=== PATIENT | female | born 1975 | race Caucasian/White ===

== ENCOUNTER 2024-09-20 20:52 | Emergency (ER) | payer OTHER ==
--- NOTE | 2024-09-20 21:23 | ER ---
Nurse's Notes [facility] Name: Jada Quiroz Age: 49 yrs Sex: Female : 1975 Arrival Date: 09/20/2024 Time: 20:52 Bed IW10 Private MD: Diagnosis: Electrocution injury Presentation: 09/20 21:15 Chief complaint: Patient states: pt reports trying to unplug something from the wall bm8 and got zapped. feels like a little chest pain and arm pain. Coronavirus screen: At this time, the client does not indicate any symptoms associated with coronavirus-19. Ebola Screen: Patient negative for fever greater than or equal to 101.5 degrees Fahrenheit, and additional compatible Ebola Virus Disease symptoms Patient denies exposure to infectious person. Patient denies travel to an Ebola-affected area in the 21 days before illness onset. No symptoms or risks identified at this time. Initial Sepsis Screen: Does the patient meet any 2 criteria? No. Patient's initial sepsis screen is negative. Does the patient have a suspected source of infection? No. Patient's initial sepsis screen is negative. Risk Assessment: Do you want to hurt yourself or someone else? Patient reports no desire to harm self or others. Onset of symptoms was September 20, 2024 at 20:00. 21:15 Method Of Arrival: Ambulatory 8 21:15 Acuity: OPHELIA 3 bm8 Triage Assessment: 21:16 General: Appears in no apparent distress. comfortable, Behavior is cooperative, bm8 appropriate for age, anxious. Pain: Complains of pain in chest and right arm Pain currently is 3 out of 10 on a pain scale. EENT: No deficits noted. No signs and/or symptoms were reported regarding the EENT system. Neuro: No deficits noted. Level of Consciousness is awake, alert, obeys commands, Oriented to person, place, time, situation, Appropriate for age. Cardiovascular: Reports chest pain, Heart tones S1 S2 present Capillary refill < 3 seconds in bilateral fingers Patient's skin is warm and dry. Rhythm is sinus rhythm. Respiratory: Airway is patent Trachea midline Respiratory effort is even, unlabored, Respiratory pattern is regular, symmetrical, Breath sounds are clear bilaterally. GI: Reports nausea. : No deficits noted. No signs and/or symptoms were reported regarding the genitourinary system. Derm: No deficits noted. No signs and/or symptoms reported regarding the dermatologic system. Musculoskeletal: No deficits noted. No signs and/or symptoms reported regarding the musculoskeletal system. 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 - Infectious Disease History:: Denies. - Social history:: Smoking status: Patient reports the use of cigarette tobacco products, Patient/guardian denies using alcohol, street drugs. - Family history:: not pertinent. Screenin:21 [facility] ED Fall Risk Assessment (Adult) History of falling in the last 3 months, bm8 including since admission No falls in past 3 months (0 pts) Confusion or Disorientation No (0 pts) Intoxicated or Sedated No (0 pts) Impaired Gait No (0 pts) Mobility Assist Device Used No (0 pt) Altered Elimination No (0 pt) Score/Fall Risk Level 0 - 2 = Low Risk Oriented to surroundings, Maintained a safe environment, Educated pt \T\ family on fall prevention, incl call for assistance when getting out of bed, Assessed \T\ reinforced patient's understanding of fall precautions, Hourly rounding (assess needs \T\ fall precautionary measures) done, Used ambulatory aids as needed (educated on \T\ assisted with), Used gait belt as appropriate. Abuse screen: Denies threats or abuse. Nutritional screening: No deficits noted. Tuberculosis screening: No symptoms or risk factors identified. Assessment: 21:21 Reassessment: see triage assessmeent. bm8 Vital Signs: 21:15 BP 146 / 97; Pulse 79; Resp 18; Temp 97.8; Pulse Ox 100% ; Weight 68.04 kg; Height 5 bm8 ft. 0 in. ; Pain 3/10; 21:15 Body Mass Index 29.29 (68.04 kg, 152.4 cm) bm8 21:15 Pain Scale: Adult bm8 Thalia Coma Score: 21:21 Eye Response: spontaneous(4). Motor Response: obeys commands(6). Verbal Response: bm8 oriented(5). Total: 15. ED Course: 20:54 Patient arrived in ED. [email or web address] 20:54 Naveen Stoner MD is Attending Physician. rt 21:16 Triage completed. bm8 21:16 Arm band placed on left wrist. bm8 21:21 Patient has correct armband on for positive identification. Bed in low position. bm8 Provided Education on: post er care. 21:21 No provider procedures requiring assistance completed. Patient did not have IV access bm8 during this emergency room visit. 21:30 Chidi Patel, RN is Primary Nurse. bm8 Administered Medications: No medications were administered Medication: 21:21 VIS not applicable for this client. bm8 Outcome: 21:21 Discharged to home ambulatory, bm8 21:21 Condition: stable 21:21 Discharge instructions given to patient, Instructed on discharge instructions, follow up and referral plans. medication usage, Demonstrated understanding of instructions, follow-up care, medications, 21:23 Discharge ordered by MD. rt 21:30 Patient left the ED. bm8 Signatures: Kaycee Lavinia [email or web address] Naveen Stoner MD MD rt Chidi Patel, RN RN bm8 Corrections: (The following items were deleted from the chart) 21:19 21:16 PMHx: portal hypertension; bm8 bm8
--- NOTE | 2024-09-20 21:23 | EDPHYS ---
Physician Documentation [facility] Name: Jada Quiroz Age: 49 yrs Sex: Female : 1975 Arrival Date: 09/20/2024 Time: 20:52 Bed IW10 Private MD: ED Physician Naveen Stoner HPI: 09/20 21:26 This 49 yrs old Female presents to ER via Ambulatory with complaints of Electrocution. rt 21:26 Patient presents to the ED with electrical shock injury occurring about 1 hour prior to rt arrival. Patient was removing a broken phone wool classer from extension cord when the prongs hit her causing medication to the right hand. Education lasted for few seconds. She initially had feelings of heart racing, tingling to the arm. States this is improved, reports mild nausea currently. Denies other acute complaints, symptoms are moderate in severity, no other aggravating or alleviating factors.. 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 - Infectious Disease History:: Denies. - Social history:: Smoking status: Patient reports the use of cigarette tobacco products, Patient/guardian denies using alcohol, street drugs. - Family history:: not pertinent. ROS: 21:26 Constitutional: Negative for fever, chills, and weight loss, Respiratory: Negative for rt shortness of breath, cough, wheezing, and pleuritic chest pain, MS/Extremity: Negative for injury and deformity, 21:26 Cardiovascular: Positive for palpitations, Negative for chest pain, 21:26 Abdomen/GI: Positive for nausea, Negative for vomiting, Exam: 21:26 Constitutional: This is a well developed, well nourished patient who is awake, alert, rt and in no acute distress. Head/Face: Normocephalic, atraumatic. Chest/axilla: Normal chest wall appearance and motion. Nontender with no deformity. No lesions are appreciated. Cardiovascular: Regular rate and rhythm with a normal S1 and S2. No gallops, murmurs, or rubs. Normal PMI, no JVD. No pulse deficits. Respiratory: Lungs have equal breath sounds bilaterally, clear to auscultation and percussion. No rales, rhonchi or wheezes noted. No increased work of breathing, no retractions or nasal flaring. Abdomen/GI: Soft, non-tender, with normal bowel sounds. No distension or tympany. No guarding or rebound. No evidence of tenderness throughout. Skin: Warm, dry with normal turgor. Normal color with no rashes, no lesions, and no evidence of cellulitis. MS/ Extremity: Pulses equal, no cyanosis. Neurovascular intact. Full, normal range of motion. Neuro: Awake and alert, GCS 15, oriented to person, place, time, and situation. Cranial nerves II-XII grossly intact. Motor strength 5/5 in all extremities. Sensory grossly intact. Cerebellar exam normal. Normal gait. 21:26 ECG was reviewed by the Attending Physician. Vital Signs: 21:15 BP 146 / 97; Pulse 79; Resp 18; Temp 97.8; Pulse Ox 100% ; Weight 68.04 kg; Height 5 bm8 ft. 0 in. ; Pain 3/10; 21:15 Body Mass Index 29.29 (68.04 kg, 152.4 cm) bm8 21:15 Pain Scale: Adult bm8 [place] Coma Score: 21:21 Eye Response: spontaneous(4). Motor Response: obeys commands(6). Verbal Response: bm8 oriented(5). Total: 15. MDM: 21:22 Medical Screening Exam initiated rt 21:26 Differential diagnosis: Electrical injury, dysrhythmia. Data reviewed: vital signs, rt nurses notes, EKG. Test considered but Not performed: Other Details Stable vital signs, normal EKG, low suspicion for cardiac injury, rhabdomyolysis. Labs are not indicated.. Counseling: I had a detailed discussion with the patient and/or guardian regarding the historical points, exam findings, and any diagnostic results supporting the discharge/admit diagnosis, the need for outpatient follow up, to return to the emergency department if symptoms worsen or persist or if there are any questions or concerns that arise at home. EC:26 Rate is 72 beats/min. Rhythm is regular, Normal Sinus Rhythm with No ectopy. QRS [place] rt is Normal. MI interval is normal. QRS interval is normal. QT interval is normal. No Q waves. T waves are Normal. No ST changes noted. Interpreted by me. Administered Medications: No medications were administered Disposition Summary: 09/20/24 21:23 Discharge Ordered Notes: Location: Home rt Problem: new rt Symptoms: have improved rt Condition: Stable rt Diagnosis - Electrocution injury rt Followup: rt - With: Private Physician - When: 2 - 3 days - Reason: Discharge Instructions: - Discharge Summary Sheet rt - Electric Shock Injury rt Forms: - Medication Reconciliation Form rt - Antibiotic Education rt - Prescription Opioid Use rt - Patient Portal Instructions rt - Leadership Thank You Letter rt Signatures: Naveen Stoner MD MD rt Chidi Patel, RN RN bm8 Corrections: (The following items were deleted from the chart) 21:19 21:16 PMHx: portal hypertension; bm8 bm8
[2024-09-20 22:17] VITALS: BP 146/97; TEMP 97.8; O2SAT 100
--- NOTE | 2024-09-21 08:50 | EKG ---
Test Date: 2024-09-20 Test Time: 21:13:31 Distribution Analyst: JAVI MEASUREMENT RESULTS: Intervals: Rate: 72 RI: 158 QRSD: 90 QT: 386 QTc: 422 [place]: P: 75 RI: 158 QRS: 88 T: 63 INTERPRETIVE STATEMENTS: Normal sinus rhythm Normal ECG No previous ECG available for comparison Electronically Signed On 09-21-24 08:49:44 SPORTS UMPIRE by Randal Nieves
== END 2024-09-20 21:30 | disposition home or self-care (01) ==
LOC: ER 20:52
DX: T75.4XXA Electrocution, initial encounter (principal)
CPT/HCPCS: 93005; 99282

== ENCOUNTER 2025-02-10 18:13 | Emergency (ER) | payer OTHER ==
[2025-02-10] MEDS ORDERED: DIPHENHYDRAMINE 50 MG/ML VIAL ONE (19:35)
[2025-02-10] MEDS ORDERED: METOCLOPRAMIDE 10 MG/2mL INJ ONE (19:35)
[2025-02-10] MEDS ORDERED: NA CHLORIDE 0.9% 1,000 ML ONE (19:35)
[2025-02-10] MEDS ORDERED: FAMOTIDINE 20 MG/2 ML VIAL IV ONE (19:35)
[2025-02-10 19:38] LABS: Absolute Basophils 0.1 K/uL (0-0.5); Absolute Eosinophils 0.1 K/uL (0-0.5); Absolute Lymphocytes (CBC) 2.5 K/uL (0.7-4.9); Absolute Monocytes 0.6 K/uL (0.1-1.3); Absolute Neutrophil 11.2 K/uL (1.8-8.0); Eosinophils % 0.9 % (0-4.4); Hematocrit 47.7 % (36.0-45.0); Lymphocytes % 17.4 % (15.3-44.8); MCH 31.9 pg (27.0-35.0); MCHC 33.6 g/dL (32.0-36.0); MCV 95.1 fL (80-100); MPV 8.6 fL (7.6-11.3); Monocytes % 4.2 % (3.3-12.3); Neutrophils % 76.5 % (41.7-73.7); Nucleated Red Blood Cells % 0.1 % (0-0); Platelets 296 thou/uL (152-406); RBC Red Blood Cell Count 5.02 M/uL (3.86-4.86); Red Cell Distribution Width 12.9 % (12.1-15.2)
[2025-02-10 20:01] LABS: Albumin 3.9 g/dL (3.4-5.0); Albumin/Globulin Ratio 0.8 (1.1-1.8); Anion Gap 9.6 mEq/L (5.0-15.0); Bilirubin Total 0.5 mg/dL (0.2-1.0); Globulin 5.1 g/dL (2.3-3.5); Potassium 3.6 mEq/L (3.5-5.1)
[2025-02-10 20:48] LABS: Influenza A Ag Negative; Influenza B Ag Negative; SARS-CoV-2 Antigen Rapid Res Negative (Negative)
--- NOTE | 2025-02-10 21:13 | RAD REPORT ---
EXAMINATION: Abdomen Pelvis W Contrast CLINICAL INDICATION: Female, 49 years old.EPIGASTRIC PAIN TECHNIQUE: CT abdomen and pelvis was performed, after the administration of IV contrast, [facility]. Axial, sagittal and coronal reconstructions were obtained. One or more of the following dose reduction techniques were used: Automated exposure control, adjustment of the mA and/o r kV according to patient size, and/or iterative reconstruction. Unless otherwise specified, incidental findings do not require dedicated imaging follow-up. [id number]. COMPARISON: No prior exam. FINDINGS: LOWER CHEST: No acute process identified.No significant pericardial effusion. UPPER GI: No significant abnormality. LIVER: Cirrhotic liver morphology. No focal masses. GALLBLADDER/BILE DUCTS: No biliary ductal dilatation.? PANCREAS: No mass, ductal dilation, or matt-pancreatic fluid. SPLEEN: Unremarkable. ADRENALS: No adrenal masses. KIDNEYS AND URETERS: No hydronephrosis.No suspicious renal mass.Nonobstructing renal calculi. ABDOMINAL AORTA AND OTHER VESSELS: Moderate atherosclerotic changes without aortic aneurysm. PERITONEUM: No abnormal free fluid. No free air. LYMPH NODES: Upper abdominal lymphadenopathy which is nonspecific but probably reactive and related t o underlying liver disease. ABDOMINAL WALL: Unremarkable SMALL BOWEL/COLON: Small bowel has normal course and caliber. No colonic wall thickening or pericolon ic inflammatory changes.Appendix absent. Mild formed stool burden. URINARY BLADDER: Underdistended but grossly unremarkable. REPRODUCTIVE ORGANS: No pathologic process. MUSCULOSKELETAL: Grade 1 anterolisthesis of L5 on S1 with bilateral pars defects. ADDITIONAL FINDINGS: None. IMPRESSION: No acute findings within the abdomen or pelvis. Incidental findings as noted above.
--- NOTE | 2025-02-10 22:30 | ER ---
Nurse's Notes [facility] Name: Jada Quiroz Age: 49 yrs Sex: Female : 1975 Arrival Date: 02/10/2025 Time: 18:13 Bed 13 Private MD: Diagnosis: Nausea with vomiting, unspecified;Diarrhea, unspecified Presentation: 02/10 18:25 Chief complaint: Patient states: N/V/D, fever, [place] for 2 days. Coronavirus screen: ll1 Client denies travel out of the [place] in the last 14 days. diarrhea, fatigue, fever, nausea, vomiting. Client presents with at least one sign or symptom that may indicate coronavirus-19. Standard/surgical mask placed on the client. Ebola Screen: Patient denies travel to an Ebola-affected area in the 21 days before illness onset. Initial Sepsis Screen: Does the patient meet any 2 criteria? No. Patient's initial sepsis screen is negative. Does the patient have a suspected source of infection? No. Patient's initial sepsis screen is negative. Risk Assessment: Do you want to hurt yourself or someone else? Patient reports no desire to harm self or others. Onset of symptoms was February 09, 2025. 18:25 Method Of Arrival: Ambulatory 1 18:25 Acuity: OPHELIA 3 ll1 Triage Assessment: 18:26 General: Appears uncomfortable, ill, Behavior is calm, cooperative, appropriate for ll1 age. Pain: Complains of pain in head Quality of pain is described as aching. Neuro: Reports headache weakness. GI: Reports cramping, diarrhea, nausea, vomiting. 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 - Infectious Disease History:: Denies. - Social history:: Smoking status: Patient denies any tobacco usage or history of. Screenin:35 [facility] ED Fall Risk Assessment (Adult) History of falling in the last 3 months, rg5 including since admission No falls in past 3 months (0 pts) Confusion or Disorientation No (0 pts) Intoxicated or Sedated No (0 pts) Impaired Gait No (0 pts) Mobility Assist Device Used No (0 pt) Altered Elimination No (0 pt) Score/Fall Risk Level 0 - 2 = Low Risk Oriented to surroundings, Maintained a safe environment, Hourly rounding (assess needs \T\ fall precautionary measures) done. Abuse screen: Denies threats or abuse. Nutritional screening: No deficits noted. Tuberculosis screening: No symptoms or risk factors identified. Assessment: 19:35 General: Appears uncomfortable, Behavior is calm, cooperative, appropriate for age, rg5 Reports feeling ill for 12-24 hours. 19:35 Pain: Complains of pain in head. Neuro: Level of Consciousness is awake, alert, obeys rg5 commands, Oriented to person, place, time, situation. Cardiovascular: Denies chest pain, Patient's skin is warm and dry. Respiratory: Airway is patent Trachea midline Respiratory effort is even, unlabored, Respiratory pattern is regular, symmetrical. GI: Abdomen is round non-distended, Bowel sounds present in left lower quadrant Abd is soft and non tender Reports cramping, diarrhea, nausea, vomiting. : No signs and/or symptoms were reported regarding the genitourinary system. EENT: No deficits noted. Derm: Skin is intact, Skin is dry, Skin is normal. Musculoskeletal: Circulation, motion, and sensation intact. Range of motion: intact in all extremities. 20:30 Reassessment: No changes from previously documented assessment. Patient and/or family rg5 updated on plan of care and expected duration. Pain level reassessed. Patient is alert, oriented x 3, equal unlabored respirations, skin warm/dry/pink. 21:40 Reassessment: Patient and/or family updated on plan of care and expected duration. Pain rg5 level reassessed. Patient is alert, oriented x 3, equal unlabored respirations, skin warm/dry/pink. Patient states feeling better. 22:45 Reassessment: Patient and/or family updated on plan of care and expected duration. Pain rg5 level reassessed. Patient is alert, oriented x 3, equal unlabored respirations, skin warm/dry/pink. Patient states symptoms have improved. Vital Signs: 18:25 BP 155 / 91; Pulse 92; Resp 18; Temp 98.6; Pulse Ox 97% ; Pain 10/10; ll1 19:35 BP 164 / 94; Pulse 70; Resp 19; Pulse Ox 97% on R/A; rg5 20:14 BP 157 / 91; Pulse 73; Resp 18; Pulse Ox 99% ; rg5 21:40 BP 111 / 69; Pulse 85; Resp 18; Pulse Ox 97% ; Pain 0/10; rg5 22:40 BP 121 / 67; Pulse 80; Resp 17; Pulse Ox 99% on R/A; Pain 0/10; rg5 18:25 Pain Scale: Adult ll1 21:40 Pain Scale: Adult rg5 22:40 Pain Scale: Adult rg5 ED Course: 18:16 Patient arrived in ED. cj3 18:24 [place] PA is PHCP. cp 18:24 Reema Downing is Attending Physician. cp 18:26 Triage completed. ll1 18:27 Arm band placed on. ll1 19:19 John Jeong, RN is Primary Nurse. rg5 19:35 Patient has correct armband on for positive identification. Call light in reach. Side rg5 rails up X 1. Door closed. Noise minimized. 19:35 No provider procedures requiring assistance completed. Inserted saline lock: 20 gauge rg5 in right antecubital area, using aseptic technique. Blood collected. Flushed with 10 mL NS. 21:03 CT Abd/Pelvis - IV Contrast Only In Process Unspecified. EDMS 23:03 Provided Education on: post er care done. rg5 23:03 IV discontinued, bleeding controlled, No redness/swelling at site. Pressure dressing rg5 applied. Administered Medications: 19:48 Drug: diphenhydrAMINE IVP 25 mg IVP once Route: IVP; Site: right antecubital; rg5 20:30 Follow up: Response: No adverse reaction rg5 19:48 Drug: metoCLOPramide IVP 10 mg IVP once; over 1 to 2 minutes Route: IVP; Site: right rg5 antecubital; 20:30 Follow up: Response: No adverse reaction rg5 19:49 Drug: Famotidine IVP 20 mg IVP once; dilute with 10 mL 0.9% NaCl; give over 2 minutes rg5 Route: IVP; Site: right antecubital; 20:30 Follow up: Response: No adverse reaction rg5 19:49 Drug: NS 0.9% IV 1000 ml IV at 1 bolus Per protocol; to be given as a bolus over 60 rg5 minutes Route: IV; Rate: 1 bolus; Site: right antecubital; 20:30 Follow up: Response: No adverse reaction; IV Status: Completed infusion; IV Intake: rg5 1000ml Medication: 19:35 VIS not applicable for this client. rg5 Intake: 20:30 IV: 1000ml; Total: 1000ml. rg5 Outcome: 22:30 Discharge ordered by MD. chester 23:03 Discharged to home ambulatory, rg5 23:03 Condition: good 23:03 Discharge instructions given to patient, Instructed on discharge instructions, Demonstrated understanding of instructions, follow-up care, Prescriptions given X 1, 23:04 Patient left the ED. rg5 Signatures: Dispatcher [employer] EDMS [place]y PA PA cp Lewis, Lynsay RN RN ll1 John Jeong RN RN rg5 Cathi Baird cj3
--- NOTE | 2025-02-10 22:30 | EDPHYS ---
Physician Documentation [facility] Name: Jada Quiroz Age: 49 yrs Sex: Female : 1975 Arrival Date: 02/10/2025 Time: 18:13 Bed 13 Private MD: ED Physician Reema Downing HPI: 02/10 18:35 This 49 yrs old Female presents to ER via Ambulatory with complaints of cp Nausea/Vomiting/Diarrhea, Fever. 18:35 The patient presents to the emergency department with nausea, with "dry heaves", cp vomiting, that is continuous, diarrhea, that is intermittent. Onset: The symptoms/episode began/occurred 2 day(s) ago. Possible causes: unknown. Associated signs and symptoms: Pertinent positives: anorexia, fever, headache, weakness, Pertinent negatives: constipation, GI bleeding. Severity of symptoms: in the emergency department the symptoms are unchanged despite home interventions. 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 - Infectious Disease History:: Denies. - Social history:: Smoking status: Patient denies any tobacco usage or history of. ROS: 18:40 Constitutional: Positive for fever, poor PO intake, cp 18:40 Eyes: Negative for injury, pain, redness, and discharge, cp 18:40 ENT: Negative for drainage from ear(s), ear pain, sore throat, difficulty swallowing, difficulty handling secretions, 18:40 Cardiovascular: Negative for chest pain, 18:40 Respiratory: Negative for cough, shortness of breath, wheezing, 18:40 Abdomen/GI: Positive for abdominal pain, nausea, vomiting, and diarrhea, anorexia, Negative for constipation, black/tarry stool, rectal bleeding, 18:40 Neuro: Negative for altered mental status, 18:40 All other systems are negative, cp Exam: 18:45 Constitutional: The patient appears in no acute distress, alert, awake, cp non-diaphoretic, non-toxic, well developed, well nourished, uncomfortable, 18:45 Head/Face: Normocephalic, atraumatic. cp 18:45 Eyes: Periorbital structures: appear normal, Conjunctiva: normal, no exudate, no injection, Sclera: no appreciated abnormality, Lids and lashes: appear normal, bilaterally, 18:45 ENT: External ear(s): are unremarkable, Nose: is normal, Mouth: Lips: moist, Oral mucosa: moist, Posterior pharynx: Airway: no evidence of obstruction, patent, 18:45 Chest/axilla: Inspection: normal, 18:45 Cardiovascular: Rate: normal, Rhythm: regular, Edema: is not appreciated, JVD: is not appreciated, 18:45 Respiratory: the patient does not display signs of respiratory distress, Respirations: normal, no use of accessory muscles, no retractions, labored breathing, is not present, Breath sounds: are clear throughout, no decreased breath sounds, no stridor, no wheezing, 18:45 Abdomen/GI: Inspection: abdomen appears normal, Bowel sounds: active, all quadrants, Palpation: soft, in all quadrants, moderate abdominal tenderness, in the epigastric area, right upper quadrant and left upper quadrant, rebound tenderness, is not appreciated, involuntary guarding, is not appreciated, 18:45 Back: pain, is absent, ROM is normal, 18:45 Neuro: Orientation: to person, place \\T\\ time. Mentation: is normal, Vital Signs: 18:25 BP 155 / 91; Pulse 92; Resp 18; Temp 98.6; Pulse Ox 97% ; Pain 10/10; ll1 19:35 BP 164 / 94; Pulse 70; Resp 19; Pulse Ox 97% on R/A; rg5 20:14 BP 157 / 91; Pulse 73; Resp 18; Pulse Ox 99% ; rg5 21:40 BP 111 / 69; Pulse 85; Resp 18; Pulse Ox 97% ; Pain 0/10; rg5 22:40 BP 121 / 67; Pulse 80; Resp 17; Pulse Ox 99% on R/A; Pain 0/10; rg5 18:25 Pain Scale: Adult ll1 21:40 Pain Scale: Adult rg5 22:40 Pain Scale: Adult rg5 MDM: 18:25 Medical Screening Exam initiated cp 22:30 Data reviewed: vital signs, nurses notes, lab test result(s), radiologic studies, CT cp scan, plain films, and as a result, I will discharge patient. 22:30 Differential diagnosis: gastritis, cholecystitis, pancreatitis, diverticulitis, viral cp gastroenteritis, gastroenteritis. I considered the following discharge prescriptions or medication management in the emergency department Medications were administered in the Emergency Department. See MAR. Care significantly affected by the following chronic conditions: Hypertension. Counseling: I had a detailed discussion with the patient and/or guardian regarding the historical points, exam findings, and any diagnostic results supporting the discharge/admit diagnosis, lab results, radiology results, to return to the emergency department if symptoms worsen or persist or if there are any questions or concerns that arise at home. Response to treatment: the patient's symptoms have markedly improved after treatment, and as a result, I will discharge patient. Special discussion: Based on the patient's Hx, exam, and Dx evaluation, there is no indication for emergent surgery or inpatient Tx. It is understood by the patient/guardian that if the Sx's persist or worsen they need to return immediately for re-evaluation. 04 18:32 Order name: COVID-19 Ag + Flu A+B Ag; Complete Time: 21:18 cp 02/10 18:32 Order name: Urinalysis W/Microscopic cp 02/10 18:32 Order name: CBC with Diff; Complete Time: 20:20 cp 02/10 21:59 Interpretation: Normal except: WBC 14.60; RBC 5.02; HGB 16.0; HCT 47.7; BRAULIO% 76.5; NEUT cp A 11.2. 02/10 18:32 Order name: CMP; Complete Time: 20:20 cp 02/10 21:59 Interpretation: Normal except: GFR 71; AST 45; ALT 89; ALK 268; TP 9.0; GLOB 5.1; A/G cp 0.8. 04 18:32 Order name: Lipase; Complete Time: 20:20 cp 02/10 22:00 Interpretation: Abnormal: LIP 158. cp 02/10 18:32 Order name: Test, Urine cp 02/10 18:32 Order name: Magnesium; Complete Time: 20:20 cp 02/10 20:20 Order name: CT Abd/Pelvis - IV Contrast Only; Complete Time: 21:18 cp 02/10 21:19 Interpretation: Report reviewed. cp 02/10 18:32 Order name: IV Saline Lock; Complete Time: 19:49 cp 02/10 18:32 Order name: Labs collected and sent; Complete Time: 19:49 cp Administered Medications: 19:48 Drug: diphenhydrAMINE IVP 25 mg IVP once Route: IVP; Site: right antecubital; rg5 20:30 Follow up: Response: No adverse reaction rg5 19:48 Drug: metoCLOPramide IVP 10 mg IVP once; over 1 to 2 minutes Route: IVP; Site: right rg5 antecubital; 20:30 Follow up: Response: No adverse reaction rg5 19:49 Drug: Famotidine IVP 20 mg IVP once; dilute with 10 mL 0.9% NaCl; give over 2 minutes rg5 Route: IVP; Site: right antecubital; 20:30 Follow up: Response: No adverse reaction rg5 19:49 Drug: NS 0.9% IV 1000 ml IV at 1 bolus Per protocol; to be given as a bolus over 60 rg5 minutes Route: IV; Rate: 1 bolus; Site: right antecubital; 20:30 Follow up: Response: No adverse reaction; IV Status: Completed infusion; IV Intake: rg5 1000ml Disposition Summary: 02/10/25 22:30 Discharge Ordered Notes: Location: Home cp Problem: new cp Symptoms: have improved cp Condition: Stable cp Diagnosis - Nausea with vomiting, unspecified cp - Diarrhea, unspecified cp Followup: cp - With: Private Physician - When: 2 - 3 days - Reason: Worsening of condition Discharge Instructions: - Discharge Summary Sheet cp - Diarrhea, Adult cp - Nausea and Vomiting, Adult cp Forms: - Medication Reconciliation Form cp - Antibiotic Education cp - Prescription Opioid Use cp - Patient Portal Instructions cp - Leadership Thank You Letter cp Prescriptions: - metoclopramide HCl 5 mg/5 mL Oral solution - take 10 milliliter ORAL route every 6 hours As needed; 240 milliliter; Refills: cp 0, Product Selection Permitted Signatures: Dispatcher [employer] EDMS [place] PA PA cp Lewis, Lynsay RN RN ll1 John Jeong RN RN rg5 Corrections: (The following items were deleted from the chart) 02/11 18:39 02/10 18:35 Associated signs and symptoms: Pertinent positives: anorexia, fever, cp Pertinent negatives: constipation, GI bleeding, cp
[2025-02-10 23:34] VITALS: TEMP 98.6
[2025-02-10 23:42] VITALS: BP 111/69; O2SAT 97
[2025-02-11 00:31] LABS: Sqamous Epithelial <5 /HPF (None Seen); Urine Bacteria None Seen /HPF (<20); Urine Bilirubin NEGATIVE (Negative); Urine Blood Negative (Negative); Urine Clarity Clear (Clear); Urine Color Light-Yellow (Yellow); Urine Culture Reflex Order NOT NEEDED; Urine Glucose NEGATIVE (Negative); Urine Ketones 1+ (Negative); Urine Micro Reflex YN NO BILL MICROSCOPIC; Urine Mucus Slight /HPF (None Seen); Urine Nitrite NEGATIVE (Negative); Urine Protein TRACE (Negative); Urine RBC <5 /HPF (None Seen); Urine Urobilinogen Normal (Normal); Urine WBC <5 /HPF (<5); Urine pH 5.5 (5.0-7.0)
[2025-02-11 00:32] LABS: Specific Gravity > 1.030 (1.005-1.030)
== END 2025-02-10 23:04 | disposition home or self-care (01) ==
LOC: ER 18:13
DX: R11.2 Nausea with vomiting, unspecified (principal); R19.7 Diarrhea, unspecified; M35.00 Sjogren syndrome, unspecified; Z11.52 Encounter for screening for COVID-19
CPT/HCPCS: 96361; 85025; 81001; 36415; 83735; 81025; 83690; 80053; 74177; 96375; 96374; 99284; 87428; Q9967; J2765; J1200; J7030